=== PATIENT | female | born 1950 | race Caucasian/White ===

== ENCOUNTER 2017-02-10 18:09 | Inpatient (IN) | payer OTHER ==
[~2017-02-10] VITALS: Ht 172.7 cm; Wt 72.1 kg
[~2017-02-10 18:09] MED LIST: ETOMIDATE (2MG/ML) 20ML VIAL IV ONE
[2017-02-10] MEDS ORDERED: SUCCINYLCHOLINE CHLORIDE 20 MG/ML 10ML VIAL IV ONE (18:10)
[2017-02-10] MEDS ORDERED: MIDAZOLAM HCL 5 MG/ML-1ML VIAL ONE (18:11)
[2017-02-10] MEDS ORDERED: ALBUTEROL SULF 2.5 MG/0.5ML(0.5%) NEB SOLN ONE (18:15)
[2017-02-10] MEDS ORDERED: IPRATROPIUM BROM 0.5 MG/2.5ML INH SOL ONE (18:15)
[2017-02-10] MEDS ORDERED: SODIUM CHLORIDE 0.9% 1,000 ML IV ONE ×2 (18:22)
[2017-02-10] MEDS ORDERED: IPRATROPIUM BROM 0.5 MG/2.5ML INH SOL NEB ONE (18:30)
[2017-02-10] MEDS ORDERED: cefTRIAXone 1GM/10ml IVPUSH 10 ML IV ONE (18:30)
[2017-02-10] MEDS ORDERED: methylPREDNISolone SOD SUCC 125 MG/2 ML VL IV ONE (18:30)
[2017-02-10] MEDS ORDERED: ONDANSETRON HCL 4 MG/2 ML VIAL IV ONE (18:30)
[2017-02-10] MEDS ORDERED: ALBUTEROL SULF 2.5 MG/0.5ML(0.5%) NEB SOLN NEB ONE (18:30)
[2017-02-10 19:33] LABS: Basophils # (auto) 0.1 uL; Basophils % (auto) 0.8 % (0.0-2.0); Eosinophils # (auto) 0 uL; Eosinophils % (auto) 0.4 % (0.0-7.0); Hematocrit 36.7 % (36.0-46.0); Lymphocytes # (auto) 0.3 uL; Lymphocytes % (auto) 3.9 % (10.0-50.0); Mean Corpuscular Hgb Conc. 32.7 g/dL (32.0-36.0); Mean Corpuscular Volume 94.8 fL (80.0-100.0); Monocytes # (auto) 0.3 uL; Monocytes % (auto) 3.6 % (0.0-12.0); Neutrophils # (auto) 7.9 uL; Neutrophils % (auto) 91.3 % (37.0-80.0); Platelet Count (auto) 212 10^3/uL (140-450); Red Blood Cells 3.87 10^6/uL (4.0-5.20); White Blood Cell 8.6 10^3/uL (4.4-10.8)
[2017-02-10 19:50] LABS: INR 1.05 (0.9-1.15); Partial Thromboplastin Time 25.1 sec (22.64-33.71); Prothrombin Time 11.4 sec (9.37-12.3)
[2017-02-10 19:54] LABS: Lactic Acid w/Reflex 2.1 mmol/L (0.4-2.0)
[2017-02-10 19:58] LABS: Albumin 3.1 g/dL (3.4-5.0); Bilirubin, Total 0.2 mg/dL (0.2-1.0); Calcium 7.9 mg/dL (8.5-10.1); Potassium 3.1 mmol/L (3.5-5.1); Total Protein 6.3 g/dL (6.4-8.2)
[2017-02-11] MEDS ORDERED: ALBUTEROL SULF 2.5 MG/0.5ML(0.5%) NEB SOLN ONE (00:26)
[2017-02-11] MEDS ORDERED: IPRATROPIUM BROM 0.5 MG/2.5ML INH SOL ONE (00:26)
[2017-02-11] MEDS: IPRATROPIUM BROM 0.5 MG/2.5ML INH SOL NEB SCH ×5 (00:30→18:24)
[2017-02-11 01:43] LABS: Urine Bacteria FEW /hpf (None Seen); Urine Blood TRACE /uL (Negative); Urine Hyaline Cast FEW /lpf (0 - 2); Urine Mucus FEW (None Seen); Urine Specific Gravity 1.019 (1.001-1.035); Urine WBC 1 /hpf (0 - 5)
[2017-02-11] MEDS ORDERED: LORazepam 2MG/ML-1ML VIAL ONE (03:23)
[2017-02-11] MEDS ORDERED: ONDANSETRON HCL 4 MG/2 ML VIAL IV PRN (03:30)
[2017-02-11] MEDS ORDERED: NITROGLYCERIN 0.4 MG SL TAB SL PRN (03:30)
[2017-02-11] MEDS ORDERED: POTASSIUM CHL 20 Meq TABLET PO ONE (03:30)
[2017-02-11] MEDS ORDERED: MORPHINE SULFATE 4 MG/ML SYR/VIAL IV PRN (03:30)
[2017-02-11] MEDS ORDERED: HYDROcodone-ACET 5/325MG TAB PO PRN (03:30)
[2017-02-11] MEDS: LORazepam 2MG/ML-1ML VIAL IV PRN ×2 (03:35→15:46)
[2017-02-11] MEDS: ALBUTEROL SULF 2.5 MG/0.5ML(0.5%) NEB SOLN NEB SCH ×3 (06:00→18:24)
[2017-02-11] MEDS ORDERED: ALBUTEROL SULF 2.5 MG/0.5ML(0.5%) NEB SOLN NEB SCH (06:00)
[2017-02-11] MEDS ORDERED: diphenhdrAMINE HCL 50 MG/1 ML VL IV ONE (07:00)
[2017-02-11] MEDS ORDERED: LORazepam 2MG/ML-1ML VIAL IV ONE (07:00)
[2017-02-11 10:35] VITALS: BP 119/69
[2017-02-11 15:48] VITALS: BP 120/69
[2017-02-11] MEDS: DOXYCYCLINE HYC 100MG/250ML 250 ML IV SCH (16:45)
[2017-02-11] MEDS ORDERED: LORazepam 2MG/ML-1ML VIAL IV PRN (16:45)
[2017-02-11] MEDS ORDERED: POTASSIUM CHLORIDE 40 MEQ, LIDOCAINE 1% (LOCAL ANESTH.) 4 ML in SODIUM CHL 0.9% 100 ML IV ONE (17:30)
[2017-02-11] MEDS: SODIUM CHLORIDE 0.9% 1,000 ML IV SCH (17:44)
[2017-02-11] MEDS: methylPREDNISolone SOD SUCC 40 MG/ML VL IV SCH (17:44)
[2017-02-11] MEDS: BUDESONIDE (INHALATION) 0.5 MG/2 ML NEB NEB SCH (17:55)
[2017-02-11] MEDS ORDERED: SUCCINYLCHOLINE CHLORIDE 20 MG/ML 10ML VIAL IV ONE ×2 (20:02→23:30)
[2017-02-11] MEDS ORDERED: ETOMIDATE (2MG/ML) 20ML VIAL IV ONE ×2 (20:02→23:30)
[2017-02-11] MEDS ORDERED: MIDAZOLAM DRIP 50 mg/50mL 50 ML IV ONE (20:08)
[2017-02-11] MEDS: MIDAZOLAM DRIP 50 mg/50mL 50 ML IV SCH (20:13)
[2017-02-11 20:25] VITALS: BP 149/90
[2017-02-11] MEDS ORDERED: PROPOFOL 100 ML IV ONE (20:25)
[2017-02-11] MEDS: PROPOFOL 100 ML IV SCH (20:38)
[2017-02-11] MEDS ORDERED: fentaNYL Drip 2500mCg/250mlNS 250 ML IV ONE (21:14)
[2017-02-11] MEDS ORDERED: PROPOFOL 100 ML IV SCH (21:14)
[2017-02-11] MEDS: fentaNYL Drip 2500mCg/250mlNS 250 ML IV SCH (21:15)
[2017-02-11] MEDS ORDERED: OSELTAMIVIR 75 MG CAP PO SCH (22:00)
[2017-02-11] MEDS: OSELTAMIVIR 30 MG CAP PO SCH (22:00)
[2017-02-11 22:05] VITALS: BP 117/74
[2017-02-12] VITALS (11 sets, daily range): BP systolic 101–152; BP diastolic 29–96
[2017-02-12] MEDS: methylPREDNISolone SOD SUCC 40 MG/ML VL IV SCH ×5 (00:19→23:49)
[2017-02-12] MEDS: SODIUM CHLORIDE 0.9% 1,000 ML IV SCH ×3 (03:36→23:45)
[2017-02-12] MEDS: DOXYCYCLINE HYC 100MG/250ML 250 ML IV SCH ×2 (04:57→16:09)
[2017-02-12 06:17] LABS: Basophils # (auto) 0 uL; Basophils % (auto) 0.3 % (0.0-2.0); Eosinophils # (auto) 0 uL; Hematocrit 35.3 % (36.0-46.0); Hemoglobin 11.8 g/dL (12.2-16.2); Lymphocytes # (auto) 0.4 uL; Mean Corpuscular Hemoglobin 31.2 pg (28.0-32.0); Mean Corpuscular Hgb Conc. 33.5 g/dL (32.0-36.0); Mean Corpuscular Volume 93.1 fL (80.0-100.0); Monocytes # (auto) 0.4 uL; Monocytes % (auto) 3.2 % (0.0-12.0); Neutrophils # (auto) 11.2 uL; Neutrophils % (auto) 93.5 % (37.0-80.0); Platelet Count (auto) 221 10^3/uL (140-450); Red Blood Cells 3.79 10^6/uL (4.0-5.20); Red Cell Distribution Width 13.8 % (11.8-14.3)
[2017-02-12] MEDS: ALBUTEROL SULF 2.5 MG/0.5ML(0.5%) NEB SOLN NEB SCH ×4 (06:26→18:40)
[2017-02-12] MEDS: IPRATROPIUM BROM 0.5 MG/2.5ML INH SOL NEB SCH ×4 (06:26→18:40)
[2017-02-12 06:42] LABS: Calcium 8.4 mg/dL (8.5-10.1); Potassium 4.3 mmol/L (3.5-5.1)
[2017-02-12 06:44] LABS: BUN/Creatinine Ratio 17.7
[2017-02-12] MEDS: FAMOTIDINE 20 MG TAB PO SCH (09:48)
[2017-02-12] MEDS: OSELTAMIVIR 30 MG CAP PO SCH ×2 (09:48→22:47)
[2017-02-12] MEDS: ENOXAPARIN SOD 40 MG/0.4 ML SYRINGE SC SCH (09:48)
[2017-02-12] MEDS: BUDESONIDE (INHALATION) 0.5 MG/2 ML NEB NEB SCH ×2 (11:19→18:40)
[2017-02-12] MEDS: MIDAZOLAM DRIP 50 mg/50mL 50 ML IV SCH (14:02)
[2017-02-12] MEDS: fentaNYL Drip 2500mCg/250mlNS 250 ML IV SCH (21:19)
[2017-02-12] MEDS: PROPOFOL 100 ML IV SCH (21:19)
[2017-02-13] VITALS (12 sets, daily range): BP systolic 111–136; BP diastolic 70–90
[2017-02-13] MEDS: IPRATROPIUM BROM 0.5 MG/2.5ML INH SOL NEB SCH ×4 (00:06→17:57)
[2017-02-13] MEDS: ALBUTEROL SULF 2.5 MG/0.5ML(0.5%) NEB SOLN NEB SCH ×4 (00:06→17:57)
[2017-02-13] MEDS: DOXYCYCLINE HYC 100MG/250ML 250 ML IV SCH ×2 (05:06→17:09)
[2017-02-13 06:07] LABS: Basophils # (auto) 0 uL; Eosinophils # (auto) 0 uL; Hematocrit 33.9 % (36.0-46.0); Hemoglobin 11.5 g/dL (12.2-16.2); Lymphocytes # (auto) 0.5 uL; Lymphocytes % (auto) 5.5 % (10.0-50.0); Mean Corpuscular Hemoglobin 31.7 pg (28.0-32.0); Mean Corpuscular Hgb Conc. 33.8 g/dL (32.0-36.0); Mean Corpuscular Volume 93.9 fL (80.0-100.0); Monocytes # (auto) 0.3 uL; Monocytes % (auto) 3.4 % (0.0-12.0); Neutrophils # (auto) 8.2 uL; Neutrophils % (auto) 91.1 % (37.0-80.0); Platelet Count (auto) 244 10^3/uL (140-450); Red Blood Cells 3.61 10^6/uL (4.0-5.20); Red Cell Distribution Width 13.9 % (11.8-14.3)
[2017-02-13] MEDS: BUDESONIDE (INHALATION) 0.5 MG/2 ML NEB NEB SCH ×2 (06:25→17:57)
[2017-02-13 06:26] LABS: Potassium 4.2 mmol/L (3.5-5.1)
[2017-02-13] MEDS: methylPREDNISolone SOD SUCC 40 MG/ML VL IV SCH ×3 (06:26→17:53)
[2017-02-13 06:31] LABS: BUN/Creatinine Ratio 34.9; Calcium 8.5 mg/dL (8.5-10.1)
[2017-02-13] MEDS: PROPOFOL 100 ML IV SCH (09:58)
[2017-02-13] MEDS: ENOXAPARIN SOD 40 MG/0.4 ML SYRINGE SC SCH (10:15)
[2017-02-13] MEDS: FAMOTIDINE 20 MG TAB PO SCH (10:15)
[2017-02-13] MEDS: OSELTAMIVIR 30 MG CAP PO SCH ×2 (10:15→22:04)
[2017-02-13] MEDS: MIDAZOLAM DRIP 50 mg/50mL 50 ML IV SCH (14:55)
[2017-02-13 15:14] LABS: Urine Bacteria NONE SEEN /hpf (None Seen); Urine Blood TRACE /uL (Negative); Urine Hyaline Cast FEW /lpf (0 - 2); Urine Specific Gravity 1.025 (1.001-1.035); Urine WBC 2 /hpf (0 - 5)
[2017-02-13] MEDS: SODIUM CHLORIDE 0.9% 1,000 ML IV SCH ×2 (19:14→20:01)
[2017-02-13] MEDS: fentaNYL Drip 2500mCg/250mlNS 250 ML IV SCH (21:35)
[2017-02-14] VITALS (11 sets, daily range): BP systolic 110–155; BP diastolic 76–99
[2017-02-14] MEDS: methylPREDNISolone SOD SUCC 40 MG/ML VL IV SCH ×2 (00:37→07:09)
[2017-02-14] MEDS: ALBUTEROL SULF 2.5 MG/0.5ML(0.5%) NEB SOLN NEB SCH ×4 (02:13→19:33)
[2017-02-14] MEDS: IPRATROPIUM BROM 0.5 MG/2.5ML INH SOL NEB SCH ×4 (02:14→19:33)
[2017-02-14] MEDS: DOXYCYCLINE HYC 100MG/250ML 250 ML IV SCH ×2 (05:09→15:55)
[2017-02-14] MEDS: SODIUM CHLORIDE 0.9% 1,000 ML IV SCH ×2 (05:09→15:47)
[2017-02-14] MEDS: BUDESONIDE (INHALATION) 0.5 MG/2 ML NEB NEB SCH ×2 (06:00→22:30)
[2017-02-14] MEDS: ACETYLCYSTEINE 10 %(100MG/ML) SOL 4ML NEB SCH ×2 (06:00→19:34)
[2017-02-14] MEDS: methylPREDNISolone SOD SUCC 125 MG/2 ML VL IV SCH ×3 (07:09→18:58)
[2017-02-14] MEDS: FAMOTIDINE 20 MG TAB PO SCH (09:35)
[2017-02-14] MEDS: OSELTAMIVIR 30 MG CAP PO SCH ×2 (09:35→22:00)
[2017-02-14] MEDS: ENOXAPARIN SOD 40 MG/0.4 ML SYRINGE SC SCH (09:35)
[2017-02-14] MEDS ORDERED: MORPHINE SULF INJ 2 MG/ML SYRINGE 1ML IV PRN (13:00)
[2017-02-14] MEDS: MIDAZOLAM DRIP 100 mg/100mL NS 100 ML IV SCH (14:28)
[2017-02-14] MEDS ORDERED: IOHEXOL 300 MG/ML 100ML BOTTLE IJ ONE (17:13)
[2017-02-15] VITALS (12 sets, daily range): BP systolic 121–153; BP diastolic 77–107
[2017-02-15] MEDS: methylPREDNISolone SOD SUCC 125 MG/2 ML VL IV SCH ×4 (00:42→18:37)
[2017-02-15] MEDS: ALBUTEROL SULF 2.5 MG/0.5ML(0.5%) NEB SOLN NEB SCH ×4 (01:14→18:32)
[2017-02-15] MEDS: IPRATROPIUM BROM 0.5 MG/2.5ML INH SOL NEB SCH ×4 (01:14→18:32)
[2017-02-15] MEDS: fentaNYL Drip 2500mCg/250mlNS 250 ML IV SCH ×2 (03:00→21:30)
[2017-02-15] MEDS: MIDAZOLAM DRIP 100 mg/100mL NS 100 ML IV SCH (03:00)
[2017-02-15] MEDS: DOXYCYCLINE HYC 100MG/250ML 250 ML IV SCH ×2 (04:45→17:00)
[2017-02-15] MEDS: SODIUM CHLORIDE 0.9% 1,000 ML IV SCH ×3 (05:10→20:58)
[2017-02-15] MEDS: ACETYLCYSTEINE 10 %(100MG/ML) SOL 4ML NEB SCH ×2 (05:30→18:32)
[2017-02-15] MEDS: BUDESONIDE (INHALATION) 0.5 MG/2 ML NEB NEB SCH ×2 (05:30→22:16)
[2017-02-15 08:03] LABS: Basophils # (auto) 0 uL; Basophils % (auto) 0.1 % (0.0-2.0); Eosinophils # (auto) 0 uL; Hematocrit 35.5 % (36.0-46.0); Hemoglobin 11.7 g/dL (12.2-16.2); Lymphocytes # (auto) 0.5 uL; Mean Corpuscular Hemoglobin 31.1 pg (28.0-32.0); Monocytes # (auto) 0.6 uL; Monocytes % (auto) 7.7 % (0.0-12.0); Neutrophils # (auto) 6.6 uL; Neutrophils % (auto) 86.2 % (37.0-80.0); Platelet Count (auto) 239 10^3/uL (140-450); Red Blood Cells 3.77 10^6/uL (4.0-5.20); Red Cell Distribution Width 13.8 % (11.8-14.3); White Blood Cell 7.6 10^3/uL (4.4-10.8)
[2017-02-15 08:13] LABS: Calcium 8.4 mg/dL (8.5-10.1); Potassium 4.2 mmol/L (3.5-5.1)
[2017-02-15 08:15] LABS: Albumin 2.7 g/dL (3.4-5.0); BUN/Creatinine Ratio 40.5
[2017-02-15 08:18] LABS: Bilirubin, Total 0.2 mg/dL (0.2-1.0)
[2017-02-15] MEDS: PROPOFOL 100 ML IV SCH ×4 (08:30→23:47)
[2017-02-15] MEDS ORDERED: DEXMEDETOMIDINE HCL 400 MCG in D5W 5% 96 ML IV SCH (09:30)
[2017-02-15] MEDS: DEXMEDETOMIDINE HCL 400 MCG in SODIUM CHL 0.9% 96 ML IV SCH (10:00)
[2017-02-15] MEDS: FAMOTIDINE 20 MG TAB PO SCH (10:01)
[2017-02-15] MEDS: OSELTAMIVIR 30 MG CAP PO SCH ×2 (10:01→22:00)
[2017-02-15] MEDS: ENOXAPARIN SOD 40 MG/0.4 ML SYRINGE SC SCH (10:01)
[2017-02-15] MEDS: ACETAMINOPHEN 500 MG TAB PO PRN (15:50)
[2017-02-15] MEDS: METOCLOPRAMIDE HCL 5MG/ml INJ 2ml VIAL IV SCH (22:00)
[2017-02-16] VITALS (7 sets, daily range): BP systolic 136–153; BP diastolic 79–98
[2017-02-16] MEDS: IPRATROPIUM BROM 0.5 MG/2.5ML INH SOL NEB SCH ×4 (00:23→18:00)
[2017-02-16] MEDS: ALBUTEROL SULF 2.5 MG/0.5ML(0.5%) NEB SOLN NEB SCH ×4 (00:23→18:00)
[2017-02-16] MEDS: methylPREDNISolone SOD SUCC 125 MG/2 ML VL IV SCH ×4 (00:58→18:30)
[2017-02-16] MEDS: DOXYCYCLINE HYC 100MG/250ML 250 ML IV SCH ×2 (04:51→17:15)
[2017-02-16] MEDS: METOCLOPRAMIDE HCL 5MG/ml INJ 2ml VIAL IV SCH ×3 (06:10→22:30)
[2017-02-16 06:26] LABS: Basophils # (auto) 0 uL; Basophils % (auto) 0.1 % (0.0-2.0); Eosinophils # (auto) 0 uL; Hematocrit 32.8 % (36.0-46.0); Hemoglobin 11.1 g/dL (12.2-16.2); Lymphocytes # (auto) 0.7 uL; Lymphocytes % (auto) 9.4 % (10.0-50.0); Mean Corpuscular Hemoglobin 31.6 pg (28.0-32.0); Mean Corpuscular Hgb Conc. 33.9 g/dL (32.0-36.0); Mean Corpuscular Volume 93.4 fL (80.0-100.0); Monocytes # (auto) 0.3 uL; Monocytes % (auto) 4.3 % (0.0-12.0); Neutrophils # (auto) 6.4 uL; Neutrophils % (auto) 86.2 % (37.0-80.0); Nucleated Red Blood Cells % 0.1 %; Platelet Count (auto) 218 10^3/uL (140-450); Red Blood Cells 3.51 10^6/uL (4.0-5.20); Red Cell Distribution Width 13.8 % (11.8-14.3); White Blood Cell 7.5 10^3/uL (4.4-10.8)
[2017-02-16] MEDS: ACETYLCYSTEINE 10 %(100MG/ML) SOL 4ML NEB SCH ×2 (06:33→18:00)
[2017-02-16 07:00] LABS: Albumin 2.4 g/dL (3.4-5.0); BUN/Creatinine Ratio 57.6; Bilirubin, Total 0.3 mg/dL (0.2-1.0); Calcium 8.1 mg/dL (8.5-10.1); Total Protein 5.5 g/dL (6.4-8.2)
[2017-02-16] MEDS: SODIUM CHLORIDE 0.9% 1,000 ML IV SCH ×2 (07:52→17:22)
[2017-02-16] MEDS: DEXMEDETOMIDINE HCL 400 MCG in SODIUM CHL 0.9% 96 ML IV SCH (09:30)
[2017-02-16] MEDS: ENOXAPARIN SOD 40 MG/0.4 ML SYRINGE SC SCH (10:00)
[2017-02-16] MEDS: BUDESONIDE (INHALATION) 0.5 MG/2 ML NEB NEB SCH ×2 (11:39→22:00)
[2017-02-16] MEDS: FAMOTIDINE 20 MG TAB PO SCH (13:30)
[2017-02-16] MEDS: OSELTAMIVIR 30 MG CAP PO SCH ×2 (13:30→22:00)
[2017-02-16] MEDS: MIDAZOLAM DRIP 100 mg/100mL NS 100 ML IV SCH (14:00)
[2017-02-16] MEDS ORDERED: ALBU1AER4 IN (18:06)
[2017-02-17] MEDS: IPRATROPIUM BROM 0.5 MG/2.5ML INH SOL NEB SCH ×4 (00:18→22:18)
[2017-02-17] MEDS: ALBUTEROL SULF 2.5 MG/0.5ML(0.5%) NEB SOLN NEB SCH ×4 (00:18→22:18)
[2017-02-17] MEDS: methylPREDNISolone SOD SUCC 125 MG/2 ML VL IV SCH ×4 (00:50→18:21)
[2017-02-17] MEDS: SODIUM CHLORIDE 0.9% 1,000 ML IV SCH ×3 (03:26→23:36)
[2017-02-17] MEDS: DOXYCYCLINE HYC 100MG/250ML 250 ML IV SCH ×2 (04:43→16:51)
[2017-02-17 05:29] VITALS: BP 140/75
[2017-02-17] MEDS: METOCLOPRAMIDE HCL 5MG/ml INJ 2ml VIAL IV SCH ×3 (06:18→22:12)
[2017-02-17] MEDS: ACETYLCYSTEINE 10 %(100MG/ML) SOL 4ML NEB SCH ×2 (07:11→22:19)
[2017-02-17 09:00] VITALS: BP 134/77
[2017-02-17] MEDS: BUDESONIDE (INHALATION) 0.5 MG/2 ML NEB NEB SCH ×2 (10:01→22:19)
[2017-02-17] MEDS: FAMOTIDINE 20 MG TAB PO SCH (10:40)
[2017-02-17] MEDS: ENOXAPARIN SOD 40 MG/0.4 ML SYRINGE SC SCH (10:40)
[2017-02-17] MEDS: OSELTAMIVIR 30 MG CAP PO SCH ×2 (11:49→22:00)
[2017-02-17] MEDS ORDERED: CYA100I PO (15:09)
[2017-02-17] MEDS ORDERED: FLUT500M2 INH (15:09)
[2017-02-17] MEDS ORDERED: ACET-1156 PO (15:09)
[2017-02-17 17:00] VITALS: BP 144/86
[2017-02-17 20:00] VITALS: BP 157/88
[2017-02-17 22:13] VITALS: BP 157/88
[2017-02-18] MEDS: methylPREDNISolone SOD SUCC 125 MG/2 ML VL IV SCH ×4 (00:59→18:48)
[2017-02-18] MEDS: IPRATROPIUM BROM 0.5 MG/2.5ML INH SOL NEB SCH ×5 (01:34→20:00)
[2017-02-18] MEDS: ALBUTEROL SULF 2.5 MG/0.5ML(0.5%) NEB SOLN NEB SCH ×4 (01:35→20:00)
[2017-02-18] MEDS: ACETAMINOPHEN 500 MG TAB PO PRN (04:35)
[2017-02-18 04:37] VITALS: BP 161/79
[2017-02-18] MEDS: DOXYCYCLINE HYC 100MG/250ML 250 ML IV SCH ×2 (04:37→17:13)
[2017-02-18 05:58] LABS: Basophils # (auto) 0 uL; Basophils % (auto) 0.1 % (0.0-2.0); Eosinophils # (auto) 0 uL; Hematocrit 35.4 % (36.0-46.0); Hemoglobin 11.9 g/dL (12.2-16.2); Lymphocytes # (auto) 0.7 uL; Lymphocytes % (auto) 5.9 % (10.0-50.0); Mean Corpuscular Hemoglobin 30.7 pg (28.0-32.0); Mean Corpuscular Hgb Conc. 33.6 g/dL (32.0-36.0); Mean Corpuscular Volume 91.3 fL (80.0-100.0); Monocytes # (auto) 0.6 uL; Monocytes % (auto) 4.7 % (0.0-12.0); Neutrophils # (auto) 10.5 uL; Neutrophils % (auto) 89.3 % (37.0-80.0); Platelet Count (auto) 286 10^3/uL (140-450); Red Blood Cells 3.88 10^6/uL (4.0-5.20); Red Cell Distribution Width 13.3 % (11.8-14.3); White Blood Cell 11.7 10^3/uL (4.4-10.8)
[2017-02-18 06:04] LABS: Albumin 2.9 g/dL (3.4-5.0); Bilirubin, Total 0.5 mg/dL (0.2-1.0); Calcium 8.4 mg/dL (8.5-10.1); Potassium 3.5 mmol/L (3.5-5.1); Total Protein 6.1 g/dL (6.4-8.2)
[2017-02-18] MEDS: ACETYLCYSTEINE 10 %(100MG/ML) SOL 4ML NEB SCH ×2 (06:11→20:01)
[2017-02-18] MEDS: BUDESONIDE (INHALATION) 0.5 MG/2 ML NEB NEB SCH ×2 (06:11→20:00)
[2017-02-18] MEDS: METOCLOPRAMIDE HCL 5MG/ml INJ 2ml VIAL IV SCH ×3 (06:21→22:12)
[2017-02-18 09:00] VITALS: BP 130/76
[2017-02-18] MEDS: OSELTAMIVIR 30 MG CAP PO SCH ×2 (09:42→22:12)
[2017-02-18] MEDS: FAMOTIDINE 20 MG TAB PO SCH (09:42)
[2017-02-18] MEDS: SODIUM CHLORIDE 0.9% 1,000 ML IV SCH ×2 (09:42→22:12)
[2017-02-18] MEDS: ENOXAPARIN SOD 40 MG/0.4 ML SYRINGE SC SCH (09:42)
[2017-02-18 13:00] VITALS: BP 133/88
[2017-02-18 14:38] VITALS: BP 130/76
[2017-02-18 17:00] VITALS: BP 141/77
[2017-02-18 22:23] VITALS: BP 137/76
[2017-02-19] MEDS: IPRATROPIUM BROM 0.5 MG/2.5ML INH SOL NEB SCH ×2 (00:22→05:58)
[2017-02-19] MEDS: ALBUTEROL SULF 2.5 MG/0.5ML(0.5%) NEB SOLN NEB SCH ×2 (00:23→05:59)
[2017-02-19] MEDS: methylPREDNISolone SOD SUCC 125 MG/2 ML VL IV SCH ×2 (00:39→06:45)
[2017-02-19 04:13] VITALS: BP 145/87
[2017-02-19] MEDS: DOXYCYCLINE HYC 100MG/250ML 250 ML IV SCH (05:23)
[2017-02-19] MEDS: ACETYLCYSTEINE 10 %(100MG/ML) SOL 4ML NEB SCH (05:59)
[2017-02-19] MEDS: METOCLOPRAMIDE HCL 5MG/ml INJ 2ml VIAL IV SCH (06:00)
[2017-02-19 08:00] VITALS: BP 156/95
[2017-02-19 08:43] VITALS: BP 156/95
[2017-02-19] MEDS: ENOXAPARIN SOD 40 MG/0.4 ML SYRINGE SC SCH (09:43)
[2017-02-19] MEDS: FAMOTIDINE 20 MG TAB PO SCH (09:43)
[2017-02-19] MEDS: SODIUM CHLORIDE 0.9% 1,000 ML IV SCH (09:59)
== END 2017-02-19 11:50 | disposition home or self-care (01) | DRG 870 ==
LOC: ER 18:14 → TELE 18:15 → TELE-CENTR 02-16 17:01
PROVIDERS: ADMIT Nurse Practitioner Family; ATTEND Hospitalist
PROC: 5A09357 Assistance with Respiratory Ventilation, Less than 24 Consecutive Hours, Continuous Positive Airway Pressure (ICD-10-PCS; 2017-02-10)
PROC: 0BH17EZ Insertion of Endotracheal Airway into Trachea, Via Natural or Artificial Opening (ICD-10-PCS; principal; 2017-02-11)
PROC: 5A09357 Assistance with Respiratory Ventilation, Less than 24 Consecutive Hours, Continuous Positive Airway Pressure (ICD-10-PCS; 2017-02-11)
PROC: 5A1955Z Respiratory Ventilation, Greater than 96 Consecutive Hours (ICD-10-PCS; 2017-02-12)
DX: A41.9 Sepsis, unspecified organism (principal); J96.01 Acute respiratory failure with hypoxia; J96.02 Acute respiratory failure with hypercapnia; J44.0 Chronic obstructive pulmonary disease with (acute) lower respiratory infection; E87.2 Acidosis; J11.00 Influenza due to unidentified influenza virus with unspecified type of pneumonia; J44.1 Chronic obstructive pulmonary disease with (acute) exacerbation; D64.9 Anemia, unspecified; E87.6 Hypokalemia; J20.9 Acute bronchitis, unspecified; F41.9 Anxiety disorder, unspecified
CPT/HCPCS: 31500; 36415; 36600; 51702; 71045; 71250; 74177; 76830; 76856; 80048; 80053; 81001; 82378; 82805; 83605; 83880; 84484; 85025; 85610; 85730; 86300; 86301; 86304; 87040; 87070; 87205; 87400; 93005; 93306; 94002; 94003; 94640; 94644; 94660; 96361; 96374; 96375; 97163; G9035; J0330; J2001; J2250; J2405; J2704; J3010; J3490; J7060